=== PATIENT | female | born 1990 | race Caucasian/White ===

== ENCOUNTER 2025-03-22 20:40 | Emergency (ER) | payer SELFPAY ==
--- NOTE | ~2025-03-22 | CT_ITS ---
CLINICAL HISTORY: RLQ pain CT abdomen and pelvis with contrast Comparison: None available Findings: No consolidation of the imaged lung bases. No liver mass by CT. Gallbladder is unremarkable for CT. The adrenal glands are normal. The spleen is nonenlarged. Pancreas partly obscured with artifacts but otherwise unremarkable. No suspicious features of small cystic changes of the imaged kidneys. No hydronephrosis. Filtered contrast could obscure small stones including renal calices. Small mesenteric lymph nodes likely reactive. No small bowel obstruction. Severe stool burden in the cecum. The appendix is not definitively seen. Wall thickening of the large intestine is nonspecific and concerning for colitis, including mid and upper cecum, transverse colon, descending colon, and sigmoid colon. Mild free fluid in the abdomen pelvis nonspecific and may be reactive and/or secondary to colitis. Fluid in the pelvic inflammatory disease also considered. No free intraperitoneal air. No drainable abscess by CT at this time. Metal artifacts secondary to umbilicus piercing. Mild wall thickening of the urinary bladder is nonspecific and may reflect cystitis. Uterus is anteverted. No adnexal soft tissue mass by CT. Phleboliths are noted in the pelvis. IMPRESSION: 1. Wall thickening of the large intestine is nonspecific and concerning for colitis, including imaged cecum. 2. Free fluid in the pelvis is nonspecific and may be reactive and/or secondary to inflammation. 3. Wall thickening of the urinary bladder. 4. The appendix is not definitively seen. This document has been electronically signed by: Flavio Holder MD on 03/23/2025 02:06:53
[2025-03-22 20:44] VITALS: BP 126/84; PULSE 82; RESP 18; TEMP 36.2; O2SAT 97; BMI 23.5
--- NOTE | 2025-03-22 20:44 | ED.GENADULT ---
HPI - General Adult General Chief complaint: Nausea/Vomiting/Diarrhea Stated complaint: V/N/D light headed Time Seen by Provider: 03/22/25 22:48 Source: patient, RN notes reviewed and old records reviewed Mode of arrival: ambulatory Limitations: no limitations History of Present Illness ED Provider: Natalie WERNER narrative: 34 year old female presents for evaluation of nausea, vomiting, and abdominal pain. She reports intractable vomiting since last night with associated RLQ abdominal pain. She denies any history of abdominal surgeries. Her last menstrual cycle was a week ago. She denies using Marijuana Her pain is a 6/10. She had associated dizziness Denies any fevers, chills, or sick contacts She reports an episode of colitis several years ago that felt similar with mostly vomiting and some diarrhea Related Data Previous Rx's ?Medication ?Instructions ?Recorded amoxicillin 875 mg-potassium 1 tab PO Q12H #14 tabs 03/23/25 clavulanate 125 mg tablet potassium chloride 20 mEq oral 40 meq PO DAILY #10 ea 03/23/25 packet Allergies Allergy/AdvReac Type Severity Reaction Status Date / Time No Known Allergies Allergy Verified 03/22/25 20:46 seasonal Allergy Unknown Unknown Uncoded 03/22/25 20:46 Review of Systems Constitutional: Constitutional: Denies body ache(s), Denies chills, Denies fever(s) and Reports malaise Eyes: Eyes: Denies blurry vision ENT: Denies vertigo and Reports dizziness Cardiovascular: Cardiovascular: Denies chest pain and Denies dyspnea Respiratory: Respiratory: Denies cough and Denies dyspnea Gastrointestinal: Gastrointestinal: Reports abdominal pain, Reports nausea and Reports vomiting Musculoskeletal: Musculoskeletal: Denies back pain Integumentary/Breasts: Skin/Breast: Denies rash Neurologic: Denies vertigo and Reports dizziness Psychiatric: Psychiatric: Denies anxiety PMFSH Social History Social History Advance Directives: No Advance Directives Information Provided: No Physical Exam ED Vital Signs: Vital Signs - 24 hr 03/22/25 20:44 03/22/25 22:17 03/23/25 00:15 Temperature 97.2 F 98.1 F Pulse Rate 82 83 Respiratory Rate 18 Blood Pressure 126/84 122/79 Pulse Oximetry 97 99 87 L Oxygen Delivery Method Room Air Room Air Room Air Oxygen Flow Rate 03/23/25 00:24 Temperature Pulse Rate Respiratory Rate Blood Pressure Pulse Oximetry 99 Oxygen Delivery Method Nasal Cannula Oxygen Flow Rate 2 BMI result Body Mass Index 23.5 Const General: healthy appearing, comfortable, no acute distress, alert and awake Nutritional Appearance: well nourished Orientation/consciousness: patient oriented x3 HENMT Head: Yes normocephalic and Yes atraumatic Eyes Eyelids: Yes eyelids normal Conjunctivae: conjunctivae normal Sclerae: sclerae normal Corneas: corneas normal Pupils: Equal, round and reactive pupils present EOM: EOMs intact bilaterally Neck Neck: Yes full ROM Resp Effort & Inspection: normal respiratory effort, able to speak in complete sentences and not labored Cardio Rate: regular rate Rhythm: regular rhythm GI Inspection: No distended Palpation (GI): Soft to palpation, not firm, Tenderness to palpation present (GI) in the RLQ; not in the LLQ, not in the LUQ and not in the RUQ, no guarding and not rigid Skin General skin exam: elasticity normal Neuro General: patient oriented x3 Cranial nerves: Yes Equal, round and reactive pupils present and Yes Bilaterally intact EOM present Cognition (Neuro): normal cognition Extrem Other: Moving all extremities well without any obvious deformities Course Course Course Narrative: This is a rapid medical exam performed by All [facility] NP: Additional HPI, ROS, PE not included below will be deferred to primary provider. Patient is a 34-year-old female presenting with complaint of nausea, vomiting and diarrhea since yesterday am. RLQ cramping. Unable to tolerate PO fluids. Plan: labs, UA Reevaluation(s) Reevaluation #1: Patient's CT scan shows colitis, she is not septic, she reports not feeling significantly improved after IV fluids and antiemetics but would prefer not to be admitted because she has dogs take care of at home. She will be discharged with since supplementation, antiemetics and antibiotics for treatment of colitis. She was given return precaution Time: 02:48 Medications Administered Discontinued Medications Generic Name Dose Route Start Last Admin Trade Name Freq PRN Reason Stop Dose Admin Lactated Ringer's 1,000 mls @ 999 mls/hr 03/22/25 23:30 03/23/25 00:05 Lr IV 03/23/25 00:30 999 mls/hr .Q1H1M MARY Administration Lactated Ringer's 1,000 mls @ 999 mls/hr 03/23/25 00:26 03/23/25 02:05 Lr IV 03/23/25 01:26 999 mls/hr .Q1H1M STA Administration Iohexol 100 ml 03/22/25 23:43 03/22/25 23:44 Iohexol 350 Mg/Ml 100 Ml Infus..Btl IV 03/22/25 23:44 85 ml ONCE ONE Administration Ketorolac Tromethamine 30 mg 03/22/25 23:27 03/23/25 00:00 Ketorolac Tromethamine 30 Mg/Ml Vial IVPUSH 03/22/25 23:28 30 mg ONCE ONE Administration Metoclopramide HCl 10 mg 03/23/25 02:00 03/23/25 02:05 Metoclopramide Hcl 10 Mg/2 Ml Vial IVPUSH 03/23/25 02:01 10 mg ONCE ONE Administration Midazolam HCl 1 mg 03/22/25 23:27 03/23/25 00:01 Midazolam Hcl 2 Mg/2 Ml Vial IVPUSH 03/22/25 23:28 1 mg ONCE ONE Administration Ondansetron HCl 4 mg 03/22/25 22:38 03/22/25 23:19 Ondansetron Odt 4 Mg Tab.Rapdis TRANSLINGU 03/22/25 22:39 4 mg ONCE ONE Administration Ondansetron HCl 4 mg 03/22/25 23:27 03/23/25 00:02 Ondansetron Hcl 4 Mg/2 Ml Vial IVPUSH 03/22/25 23:28 4 mg ONCE ONE Administration Medical Decision Making Medical Decision Making [facility] Narrative: 34-year-old female presents for evaluation of Abdominal pain with persistent nausea and vomiting since last night. Her vital signs have remained stable throughout her stay, she is normotensive, she is not hypoxic, she is not tachycardic. Routine labs were significant for a leukocytosis to 13.9 which could be related to infection versus reactive to her vomiting. She has a left shift. Chemistries are significant for potassium of 2.8, chloride of 93 and a carbon dioxide of 31. 1.12. This is all likely explain due to JACK and electrolyte loss from vomiting. Her glucose is elevated to 184, she would not carry diagnosis of diabetes. Acute in the right lower quadrant tenderness a CT scan was ordered to evaluate for acute appendicitis. Also in differential includes enteritis, colitis, bowel obstruction is favored to be less likely. The patient is not . No urinary Complaints Differential Diagnosis Differential Diagnoses: The differential diagnosis associated with the presentation includes As above Admission/Observation Consideration of admission/observation: Escalation of care including admission/observation considered Patient was offered admission due to hypokalemia, dehydration and continued vomiting but she declined Lab Data MDM Lab Attestation statement: I reviewed the patient's lab results. As above 03/22/25 20:58 03/22/25 20:58 Labs: Lab Results 03/22/25 03/23/25 Range/Units 20:58 00:04 WBC 13.9 H (4.8-10.8) X10*3/uL RBC 4.97 (4.20-5.50) X10*6/uL Hgb 15.0 (12.0-16.0) g/dl Hct 41.8 (37.0-47.0) % MCV 84.1 (80.0-98.0) fL MCH 30.2 (27.0-33.0) pg MCHC 35.9 H (31.0-35.0) g/dl RDW 12.5 (11.0-16.0) % Plt Count 427 H (160-400) X10*3/uL MPV 9.7 (9.4-12.3) fL Immature Gran % (Auto) 0.4 (0.0-0.4) % Neut % (Auto) 85.1 H (45-73) % Lymph % (Auto) 8.3 L (20-40) % Stone % (Auto) 5.8 (2-11) % Eos % (Auto) 0.1 (0-4) % Baso % (Auto) 0.3 (0-2) % Lymph # (Auto) 1.2 (1.2-4.9) X10*3/uL Stone # (Auto) 0.8 (0.1-1.2) X10*3/uL Eos # (Auto) 0.0 (0.0-0.4) X10*3/uL Baso # (Auto) 0.0 (0.0-0.2) X10*3/uL Abs Immat Gran (auto) 0.06 H (0.00-0.03) X10*3/uL Absolute Neuts (auto) 11.8 H (2.0-8.3) x10*3/uL Absolute Nucleated RBC 0.000 (0.0-0.012) X10*3/uL Nucleated RBC % (auto) 0.0 (0.0-0.2) /100WBC VBG pH 7.55 H (7.32-7.43) VBG pCO2 38 mmHg VBG pO2 56 mmHg VBG HCO3 33 H (22-26) mmol/L VBG O2 Saturation 81.0 % VBG Base Excess 10.8 mmol/L Sodium 141 (135-145) mmol/L Potassium 2.8 L* (3.3-5.1) mmol/L Chloride 93 L (96-108) mmol/L Carbon Dioxide 31 H (22-29) mmol/L Anion Gap 20 (12-20) BUN 19 H (9-16) mg/dL Creatinine 1.12 (0.5-1.4) mg/dL Estim Creat Clear Calc 72.0 Estimated GFR 56 Random Glucose 184 H (60-115) mg/dL Calcium 10.3 H (8.4-10.2) mg/dL Magnesium 2.1 (1.6-2.6) mg/dL Total Bilirubin 0.4 (0.0-1.0) mg/dL AST 27 (5-31) U/L ALT 18 (0-31) U/L Alkaline Phosphatase 63 (39-117) U/L Total Protein 8.4 H (6.5-8.0) g/dL Albumin 5.4 H (3.5-5.0) g/dL Beta HCG, Quant < 2 mIU/mL Urine Color Dark Yellow Urine Appearance Cloudy Urine pH 5.5 (5.0-9.0) Ur Specific [place] >= 1.030 H (1.005-1.025) Urine Protein 100 (2+) H (Neg-Trace) mg/dL Urine Glucose (UA) Negative (Negative) mg/dL Urine Ketones 15 (Negative) mg/dL Urine Blood Negative (Negative) Urine Nitrite Negative (Negative) Ur Leukocyte Esterase Trace H (Negative) Urine RBC 3-5 H (0-2) /HPF Urine WBC 0-5 (0-5) /HPF Ur Squamous Epith Cells 11-20 (0-2) /HPF Urine Bacteria Trace (None Seen) Hyaline Casts 11-20 (0-2) /LPF Granular Casts Present Radiology Impression Discussion of test interpretation with radiology: I have reviewed the radiologist's reading. Radiologist Impression: IMPRESSION: 1. Wall thickening of the large intestine is nonspecific and concerning for colitis, including imaged cecum. 2. Free fluid in the pelvis is nonspecific and may be reactive and/or secondary to inflammation. 3. Wall thickening of the urinary bladder. 4. The appendix is not definitively seen. This document has been electronically signed by: Flavio Holder MD on 03/23/2025 02:06:53 Discharge Plan Discharge Clinical Impression: Colitis, Acute hypokalemia Patient Disposition: Home, Self-Care Instructions: Colitis (ED) Additional Instructions: Your workup in the ER today showed colitis. This is inflammation of your large intestine Hydrate well, small sips at a time to prevent nausea Your potassium was low today in you were given potassium supplementation. Use Zofran as needed for nausea and vomiting Take Augmentin twice daily for 1 week to treat colitis This may worsen nausea and cause GI upset Return to the ER if your symptoms are worsening or not improving Prescriptions: New amoxicillin-pot clavulanate 875-125 mg tablet 1 tab PO Q12H Qty: 14 0RF potassium chloride 20 mEq packet 40 meq PO DAILY Qty: 10 0RF Print Language: [place] Islander
--- OUTSIDE RECORDS SUMMARY | 2025-03-22 21:02 | XMS_ITS | Clinical Summary ---
Author Organization [facility] Address [address] [place] [address] Phone Care Team Providers Care Epic Willow Analyst Name Role Phone Unavailable Primary Care Provider Unavailabl e Social History Tobacco Use Types Packs/Day Years Used Date Smoking Tobacco: Never Assessed Comments Unknown Sex and Gender Information Value Date Recorded Sex Assigned at Not on file Legal Sex Female 9:07 PM EST Gender Identity Not on file Sexual Orientation Not on file Plan of Treatment Health Maintenance Due Date Last Done Comments DTaP,Tdap,and Td Vaccines (1 - Tdap) 12/19/2010 Hepatitis B Vaccines (1 of 3 - 19+ 3-dose series) 12/19/2010 Cervical Cancer Screening: P ap Smear 12/19/2012 Depression Screening 11/03/2023 HIV Screening 11/03/2023 Hepatitis C Screening 11/03/2023 Social Influencers of Health Screening 11/03/2023 COVID-19 Vaccine (2023-2 5 season) 2024 Influenza Vaccine (Season Ended) 2025 HIB Vaccines Aged Out No longer eligi ble based on patient's age to complete this topic HPV Vaccines Aged Out No longer eligi ble based on patient's age to complete this topic Hepatitis A Vaccines Aged Out No long er eligible based on patient's age to complete this topic IPV Vaccines Aged Out No longer eligi ble based on patient's age to complete this topic MMR Vaccines Aged Out No longer eligi ble based on patient's age to complete this topic Meningococcal ACWY Vaccine Aged Out N o longer eligible based on patient's age to complete this topic Meningococcal B Vaccine Aged Out No l onger eligible based on patient's age to complete this topic Pneumococcal Vaccine: Pediat rics (0 to 5 Years) and At-Risk Patients (6 to 64 Years) Aged Out No longer eligible b ased on patient's age to complete this topic RSV Immunization Patients Un edward 20 months Aged Out No longer eligible b ased on patient's age to complete this topic Varicella Vaccines Aged Out No longer eligible based on patient's age to complete this topic
[2025-03-22 21:08] LABS: MANUAL DIFF FLAG NO
[2025-03-22 21:09] LABS: Basophils Percent Auto 0.3 % (0-2); Eosinophils Percent Auto 0.1 % (0-4); Hematocrit 41.8 % (37.0-47.0); Imm Gran Abs Auto 0.06 X10*3/uL (0.00-0.03); Imm Gran Pct Auto 0.4 % (0.0-0.4); Lymphocytes Absolute Auto 1.2 X10*3/uL (1.2-4.9); Lymphocytes Percent Auto 8.3 % (20-40); Mean Corpuscular HGB Conc 35.9 g/dl (31.0-35.0); Mean Corpuscular Hemoglobin 30.2 pg (27.0-33.0); Mean Corpuscular Volume 84.1 fL (80.0-98.0); Mean Platelet Volume 9.7 fL (9.4-12.3); Monocytes Absolute Auto 0.8 X10*3/uL (0.1-1.2); Monocytes Percent Auto 5.8 % (2-11); Neutrophils Absolute Auto 11.8 x10*3/uL (2.0-8.3); Neutrophils Percent Auto 85.1 % (45-73); Platelet Count 427 X10*3/uL (160-400); Red Blood Count 4.97 X10*6/uL (4.20-5.50); Red Cell Distribution Width 12.5 % (11.0-16.0); White Blood Count 13.9 X10*3/uL (4.8-10.8)
[2025-03-22 21:11] LABS: Appearance Urine Cloudy; Color Urine Dark Yellow; Glucose Urine UA Negative (Negative); Leukocyte Esterase Urine Trace (Negative); Nitrite Urine Negative (Negative); PH 5.5 (5.0-9.0); Specific Gravity - Urine >= 1.030 (1.005-1.025); UMIC TRIGGER UACC YES; Urine Blood Negative (Negative); Urine Ketones 15 mg/dL (Negative); Urine Protein 100 (2+) mg/dL (Neg-Trace)
[2025-03-22 21:35] LABS: Bacteria Urine Trace (None Seen); Granular Casts Urine Present; WBC Urine 0-5 /HPF (0-5)
[2025-03-22 21:50] LABS: Alanine Aminotransferase 18 U/L (0-31); Albumin Level 5.4 g/dL (3.5-5.0); Alkaline Phosphatase 63 U/L (39-117); Anion Gap 20 (12-20); Aspartate Amino Transferase 27 U/L (5-31); Bilirubin Total 0.4 mg/dL (0.0-1.0); Blood Urea Nitrogen 19 mg/dL (9-16); Calcium 10.3 mg/dL (8.4-10.2); Carbon Dioxide 31 mmol/L (22-29); Chloride 93 mmol/L (96-108); Estimated Glomerular Filt Rate 56; Glucose Random 184 mg/dL (60-115); Magnesium 2.1 mg/dL (1.6-2.6); Potassium 2.8 mmol/L (3.3-5.1); Sodium 141 mmol/L (135-145); Total Protein 8.4 g/dL (6.5-8.0)
[2025-03-22 22:07] LABS: HCG Quantitative < 2 mIU/mL
[2025-03-22 22:17] VITALS: BP 122/79; PULSE 83; TEMP 36.7; O2SAT 99
[2025-03-22] MEDS: Ondansetron ODT 4 MG TAB.RAPDIS TRANSLINGU (23:19)
[2025-03-22] MEDS: iohexoL 350 MG/ML 100 ML INFUS..BTL IV (23:44)
[2025-03-23] MEDS: Ketorolac Tromethamine 30 MG/ML VIAL IVPUSH
[2025-03-23] MEDS: Midazolam HCl 2 MG/2 ML VIAL 1 MG IVPUSH (00:01)
[2025-03-23] MEDS: ondansetron HCL 4 MG/2 ML VIAL IVPUSH (00:02)
[2025-03-23] MEDS: Lactated Ringers 1,000 ML 999 ML IV ×2 (00:05→02:05)
[2025-03-23 00:06] LABS: Venous Blood Gas Refer to POC result
[2025-03-23 00:09] LABS: VBG Base Excess 10.8 mmol/L; VBG HCO3 33 mmol/L (22-26); VBG pCO2 38 mmHg; VBG pH 7.55 (7.32-7.43); VBG pO2 56 mmHg
[2025-03-23 00:15] VITALS: O2SAT 87
[2025-03-23 00:24] VITALS: O2SAT 99
[2025-03-23] MEDS: Metoclopramide HCl 10 MG/2 ML VIAL IVPUSH (02:05)
[2025-03-23] MEDS: Potassium Chloride ER 20 MEQ TAB.ER.PRT 60 MEQ PO (02:50)
[2025-03-23 02:51] VITALS: BP 138/76; PULSE 91; RESP 20; TEMP 36.8; O2SAT 96
[2025-03-23 03:14] VITALS: BP 138/76; PULSE 91; RESP 20; TEMP 36.8; O2SAT 96
== END 2025-03-23 03:24 | disposition home or self-care (01) ==
PROVIDERS: Physician Assistant; Registered Nurse Emergency; Emergency Provider Internal Medicine
DX: K52.9 Noninfective gastroenteritis and colitis, unspecified (principal); E87.6 Hypokalemia; R11.2 Nausea with vomiting, unspecified; R10.31 Right lower quadrant pain
CPT/HCPCS: 36415; 74177; 80053; 81001; 82803; 83735; 84702; 85025; 96361; 96374; 96375; 99285; J1885; J2250; J2405; J2765; J7120; Q9967

== ENCOUNTER → 2025-03-22 23:28 | Outpatient (BNV) | payer SELFPAY | PROVIDERS: Emergency Provider Internal Medicine; Visit Provider Radiology Neuroradiology | DX: K63.89 Other specified diseases of intestine (principal); R18.8 Other ascites; N32.89 Other specified disorders of bladder | CPT/HCPCS: 74177 ==

== ENCOUNTER 2025-03-24 09:03 | Inpatient (IN) | payer SELFPAY ==
[2025-03-24 09:14] VITALS: BP 128/88; PULSE 86; RESP 18; TEMP 36.8; O2SAT 97; BMI 23.8
[2025-03-24 09:29] LABS: MANUAL DIFF FLAG NO
[2025-03-24 09:32] LABS: Basophils Percent Auto 0.2 % (0-2); Eosinophils Percent Auto 0.1 % (0-4); Hematocrit 39.9 % (37.0-47.0); Imm Gran Abs Auto 0.06 X10*3/uL (0.00-0.03); Imm Gran Pct Auto 0.4 % (0.0-0.4); Lymphocytes Percent Auto 7.2 % (20-40); Mean Corpuscular HGB Conc 35.1 g/dl (31.0-35.0); Mean Corpuscular Hemoglobin 29.9 pg (27.0-33.0); Mean Corpuscular Volume 85.3 fL (80.0-98.0); Mean Platelet Volume 9.5 fL (9.4-12.3); Monocytes Absolute Auto 0.7 X10*3/uL (0.1-1.2); Monocytes Percent Auto 4.9 % (2-11); Neutrophils Absolute Auto 11.7 x10*3/uL (2.0-8.3); Neutrophils Percent Auto 87.2 % (45-73); Platelet Count 405 X10*3/uL (160-400); Red Blood Count 4.68 X10*6/uL (4.20-5.50); Red Cell Distribution Width 12.3 % (11.0-16.0); White Blood Count 13.4 X10*3/uL (4.8-10.8)
[2025-03-24 09:49] LABS: Alanine Aminotransferase 60 U/L (0-31); Albumin Level 4.9 g/dL (3.5-5.0); Alkaline Phosphatase 54 U/L (39-117); Anion Gap 14 (12-20); Aspartate Amino Transferase 45 U/L (5-31); Bilirubin Total 0.4 mg/dL (0.0-1.0); Blood Urea Nitrogen 15 mg/dL (9-16); Calcium 9.7 mg/dL (8.4-10.2); Carbon Dioxide 28 mmol/L (22-29); Chloride 100 mmol/L (96-108); Creatinine Clr Calc Pharmacy 98.4; Estimated Glomerular Filt Rate > 60; Glucose Random 117 mg/dL (60-115); Potassium 2.9 mmol/L (3.3-5.1); Sodium 139 mmol/L (135-145); Total Protein 7.7 g/dL (6.5-8.0)
--- NOTE | 2025-03-24 11:13 | ED_ITS ---
HPI - Abdominal Pain General Chief Complaint: Abdominal Pain Stated Complaint: nausea vomiting racing heart Time Seen by Provider: 03/24/25 11:09 Source: patient Mode of arrival: ambulatory Limitations: no limitations History of Present Illness ED Provider: DR. Morales HPI narrative: 34-year-old female return to the emergency department today for persistent of nausea, vomiting, nonbloody watery diarrhea, and diffuse abdominal cramps, patient was seen on 03/22 for similar symptoms had CT abdomen pelvis which reveals nonspecific colitis. Patient reports persistent vomiting and unable to keep any medicine down patient was discharged on Augmentin and supplemental potassium. No history of intra-abdominal surgery, last bowel movement was this morning and was nonbloody watery brown stool diarrhea, able to pass flatus, no dysuria, no frequency urination but patient notice a dark color urine. No vaginal discharge or bleed, no chance of being . Patient reports no history of marijuana use, patient admit to drinking alcohol occasionally. Related Data Previous Rx's ?Medication ?Instructions ?Recorded amoxicillin 875 mg-potassium 1 tab PO Q12H #14 tabs 03/23/25 clavulanate 125 mg tablet potassium chloride 20 mEq oral 40 meq PO DAILY #10 ea 03/23/25 packet Allergies Allergy/AdvReac Type Severity Reaction Status Date / Time No Known Allergies Allergy Verified 03/24/25 09:16 seasonal Allergy Unknown Unknown Uncoded 03/22/25 20:46 Review of Systems Review of Systems All other systems are reviewed and are negative Constitutional: Reports as per HPI and Reports no additional constitutional complaints Eyes: Reports as per HPI and Reports no additional eye complaints Reports system reviewed and no additional complaints, except as documented Cardiovascular: Reports as per HPI and Reports no additional cardiovascular complaints Respiratory: Reports as per HPI and Reports no additional respiratory complaints Gastrointestinal: Reports as per HPI and Reports no additional gastrointestinal complaints Genitourinary: Reports no additional female genitourinary complaints Musculoskeletal: Reports no additional musculoskeletal complaints Skin/Breast: Reports system reviewed and no additional complaints, except as docu Psychiatric: Reports no additional psychiatric complaints Endocrine: Reports no additional endocrine complaints Hematologic/Lymphatic: Reports no additional hematologic/lymphatic complaints Allergic/Immunologic: Reports no additional allergic/immunologic complaints Reports system reviewed and no additional complaints, except as documented and Reports Abnormal speech present Physical Exam ED Vital Signs: Vital Signs - 24 hr 03/24/25 09:14 Temperature 98.2 F Pulse Rate 86 Respiratory Rate 18 Blood Pressure 128/88 Pulse Oximetry 97 Oxygen Delivery Method Room Air BMI result Body Mass Index 23.8 Vital signs have been reviewed and appear to be correct. Blood pressure elevated. Heart rate normal. Respiratory rate normal. Temperature normal. Oxygen saturation normal. Appearance: Alert. Oriented X3. No acute distress. Head: Normal external exam. Normocephalic. Atraumatic. No Cook signs noted. No raccoon eyes noted Eyes: PERRLA. EOMI. Conjunctiva and sclera normal. Eyelids normal. ENT: TM's Normal. Pharynx normal. Uvula midline. Dry mucous membranes. No trismus noted. No drooling noted. No muffled voice noted. Neck: Normal inspection. Neck supple. FROM. No adenopathy. Thyroid Normal. No meningeal signs. No neck mass noted. CVS: Normal heart rate and rhythm. Heart sound normal. No murmurs noted. Pulses normal throughout. Respiratory: No respiratory distress. Painless inspiration. Breath sounds normal. No wheezes/rales/rhonchi noted. Chest nontender. No accessory muscle usage noted or decreased air movement noted. Abdomen: Soft and nontender. Bowel sounds normal in all 4 quadrants. No distention noted. No organomegaly noted. No visible injury noted. Back: No CVA tenderness. Full range of motion noted. Skin: Skin warm and dry. Normal skin color. Normal skin turgor. No rashes/lesions/lacerations noted. Extremities: No lower extremity edema. Extremities exhibit normal range of motion. Extremities nontender. Neuro: Oriented X 3. Cranial nerve exam: II-XII are grossly intact No motor deficit. No sensory deficit. Reflexes normal. Course Reevaluation(s) Reevaluation #1: Persistent colitis with persistent nausea and vomiting with dehydration and hypokalemia. Unable to tolerate p.o. intake at home will consider IV hydration, antibiotic, and antiemetic medication. Replete potassium. Time: 11:20 Medical Decision Making Differential Diagnosis Differential Diagnoses: The differential diagnosis associated with the presentation includes ( Dehydration, colitis, diverticulitis, electrolyte derangement, severe anemia.) Admission/Observation Consideration of admission/observation: Escalation of care including admission/observation considered Consult Healthcare Provider Management of the patient was discussed with: Hospitalist ( Dr. Medina) Lab Data MDM Lab Attestation statement: I reviewed the patient's lab results. 03/24/25 09:25 03/24/25 09:25 Labs: Lab Results 03/24/25 Range/Units 09:25 WBC 13.4 H (4.8-10.8) X10*3/uL RBC 4.68 (4.20-5.50) X10*6/uL Hgb 14.0 (12.0-16.0) g/dl Hct 39.9 (37.0-47.0) % MCV 85.3 (80.0-98.0) fL MCH 29.9 (27.0-33.0) pg MCHC 35.1 H (31.0-35.0) g/dl RDW 12.3 (11.0-16.0) % Plt Count 405 H (160-400) X10*3/uL MPV 9.5 (9.4-12.3) fL Immature Gran % (Auto) 0.4 (0.0-0.4) % Neut % (Auto) 87.2 H (45-73) % Lymph % (Auto) 7.2 L (20-40) % Mitchell % (Auto) 4.9 (2-11) % Eos % (Auto) 0.1 (0-4) % Baso % (Auto) 0.2 (0-2) % Lymph # (Auto) 1.0 L (1.2-4.9) X10*3/uL Mitchell # (Auto) 0.7 (0.1-1.2) X10*3/uL Eos # (Auto) 0.0 (0.0-0.4) X10*3/uL Baso # (Auto) 0.0 (0.0-0.2) X10*3/uL Abs Immat Gran (auto) 0.06 H (0.00-0.03) X10*3/uL Absolute Neuts (auto) 11.7 H (2.0-8.3) x10*3/uL Absolute Nucleated RBC 0.000 (0.0-0.012) X10*3/uL Nucleated RBC % (auto) 0.0 (0.0-0.2) /100WBC Sodium 139 (135-145) mmol/L Potassium 2.9 L* (3.3-5.1) mmol/L Chloride 100 (96-108) mmol/L Carbon Dioxide 28 (22-29) mmol/L Anion Gap 14 (12-20) BUN 15 (9-16) mg/dL Creatinine 0.82 (0.5-1.4) mg/dL Estim Creat Clear Calc 98.4 Estimated GFR > 60 Random Glucose 117 H (60-115) mg/dL Calcium 9.7 (8.4-10.2) mg/dL Total Bilirubin 0.4 (0.0-1.0) mg/dL AST 45 H (5-31) U/L ALT 60 H (0-31) U/L Alkaline Phosphatase 54 (39-117) U/L Total Protein 7.7 (6.5-8.0) g/dL Albumin 4.9 (3.5-5.0) g/dL Independent Interpretation I performed an independent interpretation of an: CT Scan ( abdomen pelvis:. Wall thickening of the large intestine is nonspecific and concerning for colitis, including imaged cecum. 2. Free fluid in the pelvis is nonspecific and may be reactive and/or secondary to inflammation. 3. Wall thickening of the urinary bladder. 4. The appendix is not definitivel) Radiology Impression Discussion of test interpretation with radiology: I have reviewed the radiologist's reading. Discharge Plan Discharge Clinical Impression: Intractable nausea and vomiting, Gastroenteritis, Colitis, Acute hypokalemia Patient Disposition: Admitted As Inpatient Prescriptions: No Action amoxicillin-pot clavulanate 875-125 mg tablet 1 tab PO Q12H Qty: 14 0RF potassium chloride 20 mEq packet 40 meq PO DAILY Qty: 10 0RF Print Language: Faroese
[2025-03-24 11:58] VITALS: BP 130/86; PULSE 91; RESP 18; TEMP 37.3; O2SAT 96
[2025-03-24] MEDS: ondansetron HCL 4 MG/2 ML VIAL IVPUSH ×2 (12:12→18:02)
[2025-03-24] MEDS: Ketorolac Tromethamine 30 MG/ML VIAL 15 MG IVPUSH (12:12)
[2025-03-24] MEDS: Piperacillin Sodium/Tazobactam 3.375 GM in 0.9 % Sodium Chloride 50 ML IV ×3 (12:13→23:11)
[2025-03-24 12:23] LABS: Lactic Acid 0.8 mmol/L (0.5-2.0)
[2025-03-24 12:23] LABS: Appearance Urine Clear; Color Urine Yellow; Glucose Urine UA Negative (Negative); Leukocyte Esterase Urine Trace (Negative); Nitrite Urine Negative (Negative); Specific Gravity - Urine 1.015 (1.005-1.025); UMIC TRIGGER UACC YES; Urine Blood Negative (Negative); Urine Ketones 15 mg/dL (Negative); Urine Protein Trace mg/dL (Neg-Trace)
[2025-03-24 12:24] LABS: UPreg QC Valid YES; Urine Pregnancy NEGATIVE (NEGATIVE)
[2025-03-24 12:25] LABS: Bacteria Urine None Seen (None Seen); Hyaline Casts Urine 0-2 /LPF (0-2); RBC Urine 0-2 /HPF (0-2); WBC Urine 0-5 /HPF (0-5)
[2025-03-24] MEDS: Potassium Chloride/H20 10 MEQ/100 ML PIGGYBACK 100 MEQ IV ×3 (12:51→19:43)
[2025-03-24] MEDS: 0.9 % Sodium Chloride 1,000 ML 999 ML IV (12:54)
--- OUTSIDE RECORDS SUMMARY | 2025-03-24 12:59 | XMS_ITS | Clinical Summary ---
Author Organization [facility] Address [address] [place] [address] Phone Care Team Providers Care Microwave Oven Assembler Name Role Phone Unavailable Primary Care Provider [...]
--- NOTE | 2025-03-24 14:03 | PHA.MEDREC ---
Addendum entered by Edith Marr RPh 03/24/25 14:44: MED REC REVIEWED BY [facility] Original Note: Pharmacy Consult ? Medication Reconciliation Pharmacy has completed the medication reconciliation. Spoke with pt and she was able to confirm she had just started on an Amoxicillin-Pot and Potassium Chloride 20meq regimen yesterday but doesn't think she was able to keep them down and threw them up. She also has on hand a packet of Nauzene for upset stomach and nausea and states she takes 3 tabs as needed when she feels like she is going to be sick.
[2025-03-24 15:06] VITALS: BP 122/68; PULSE 80; RESP 16; TEMP 37.5; O2SAT 96
[2025-03-24] MEDS: Lactated Ringers 1,000 ML 100 ML IVCONT (16:41)
--- NOTE | 2025-03-24 17:50 | P.HPHOSP_ITS ---
History of Present Illness Date of Service: 03/24/25 Attending physician on admission: Byron Williamson Chief Complaint: abd pain 34y/o F who was in the ED yesterday with similar symptoms-came today for persistent of nausea, vomiting, nonbloody watery diarrhea, and diffuse abdominal cramps, patient was seen on 03/22 for similar symptoms had CT abdomen pelvis which reveals nonspecific colitis. She was sent home yesterday with p.o. Augmentin but she could not tolerate it due to persistent nausea vomiting and also has significant abdominal pain so came to the hospital for further management. Last BM was this morning mostly watery Denies any new complaint of chest pain or shortness of breath or fever or chills Denies any cough or any weakness or numbness. Lab imaging reviewed: WBC count is 13.4 Potassium 2.9 Mild elevated AST and ALT. CT abdomen as above. Patient received IV Zosyn, Zofran pain medication and potassium in ED and requested admission for colitis and unable to take p.o. Review of Systems 2 Review of Systems: As above. Yes all other systems are reviewed and are negative PMFSH Social History Advance Directives: No Advance Directives Information Provided: Yes Patient : No Meds Allergies Allergy/AdvReac Type Severity Reaction Status Date / Time No Known Allergies Allergy Verified 03/24/25 09:16 seasonal Allergy Unknown Unknown Uncoded 03/22/25 20:46 Active Medications: Current Medications Acetaminophen (Acetaminophen 325 Mg Tablet) 650 mg PO Q6H PRN PRN Reason: Pain, Mild 1-3,fever,headache Calcium Carbonate (Calcium Carbonate 750 Mg Tab.Chew) 750 mg PO Q4H PRN PRN Reason: Heartburn Piperacillin Sod/Tazobactam (Sod 3.375 gm/ Sodium Chloride) 50 mls @ 100 mls/hr IV Q6H [facility] Last Admin: 03/24/25 17:03 Dose: 100 mls/hr Lactated Ringer's (Lr) 1,000 mls @ 100 mls/hr IVCONT .Q10H [facility] Last Admin: 03/24/25 16:41 Dose: 100 mls/hr Potassium Chloride (Potassium Chloride/H20) 10 meq in 100 mls @ 100 mls/hr IV Q1H MARY Stop: 03/24/25 18:14 Magnesium Hydroxide (Milk Of Magnesia 30 Ml Oral.Susp) 30 ml PO DAILY PRN PRN Reason: Constipation Melatonin (Melatonin 3 Mg Tablet) 6 mg PO BEDTIME PRN PRN Reason: Insomnia Morphine Sulfate (Morphine Sulfate 2 Mg/Ml Cartridge) 2 mg IVPUSH Q4H PRN; Protocol PRN Reason: Pain, Severe (Pain Scale 7-10) Ondansetron HCl (Ondansetron Hcl 4 Mg/2 Ml Vial) 4 mg IVPUSH Q6H PRN PRN Reason: Nausea and Vomiting Sodium Chloride (0.9 % Sodium Chloride Flush 3 Ml Syringe) 3 ml IVFLUSH QSHIFT COUNTS INCLUDE 234 BEDS AT THE [facility] Last Admin: 03/24/25 16:44 Dose: Not Given Home Medications ?Medication ?Instructions ?Recorded ?Confirmed ?Last Taken ?Type sodium citrate 230 mg chewable 690 mg PO Q15M PRN Nausea And 03/24/25 03/24/25 03/23/25 History tablet (Nauzene Upset Vomiting Stomach-Nausea) Physical Exam 2 Vital Signs and Narrative: Vital Signs: Last Vital Signs Temp 99.5 F 03/24/25 15:06 Pulse 80 03/24/25 15:06 Resp 16 03/24/25 15:06 BP 122/68 03/24/25 15:06 Pulse Ox 96 03/24/25 15:06 O2 Del Method Room Air 03/24/25 15:06 BMI result Body Mass Index 23.8 Appearance: Alert.? Oriented X3.? cvs: rrr, [id number] . res: clear to auscultation ,no rhonchii or wheezing abd: no rebound or guarding ,right sided abd pain, bs present. ext pulses present , no cyanosis . neuro: axo3 , nonfocal. Results Labs 03/24/25 09:25 03/24/25 09:25 Labs: Laboratory Results - last 24 hr 03/24/25 03/24/25 03/24/25 09: 12:00 12:11 MCV 85.3 MCH 29.9 MCHC 35.1 H RDW 12.3 Plt Count 405 H MPV 9.5 Immature Gran % (Auto) 0.4 Neut % (Auto) 87.2 H Lymph % (Auto) 7.2 L [place] % (Auto) 4.9 Eos % (Auto) 0.1 Baso % (Auto) 0.2 Lymph # (Auto) 1.0 L [place] # (Auto) 0.7 Eos # (Auto) 0.0 Baso # (Auto) 0.0 Abs Immat Gran (auto) 0.06 H Absolute Neuts (auto) 11.7 H Absolute Nucleated RBC 0.000 Nucleated RBC % (auto) 0.0 Anion Gap 14 Estim Creat Clear Calc 98.4 Estimated GFR > 60 Random Glucose 117 H Lactic Acid 0.8 Calcium 9.7 Total Bilirubin 0.4 AST 45 H ALT 60 H Alkaline Phosphatase 54 Total Protein 7.7 Albumin 4.9 Urine Color Yellow Urine Appearance Clear Urine pH 8.0 Ur Specific [place] 1.015 Urine Protein Trace Urine Glucose (UA) Negative Urine Ketones 15 Urine Blood Negative Urine Nitrite Negative Ur Leukocyte Esterase Trace H Urine RBC 0-2 Urine WBC 0-5 Ur Squamous Epith Cells 3-5 Urine Bacteria None Seen Hyaline Casts 0-2 Urine Test NEGATIVE Assessment and Plan (1) Acute hypokalemia: Status: Acute (2) Colitis: Status: Acute (3) Intractable nausea and vomiting: Status: Acute Plan 34y/o F who was in the ED yesterday with similar symptoms-came today for persistent of nausea, vomiting, nonbloody watery diarrhea, and diffuse abdominal cramps, patient was seen on 03/22 for similar symptoms had CT abdomen pelvis which reveals nonspecific colitis. Colitis with intractable nausea vomiting and diarrhea: Lactic acid normal, blood cultures sent Not septic at present Plan: Stool studies, IV fluid, antiemetics IV, IV antibiotics, IV pain medication. Acute hypokalemia: IV potassium added Monitor BMP closely DVT : SubQ Lovenox Ongoing need for hospitalization: Colitis with intractable nausea vomiting diarrhea-unable to take p.o. food or antibiotics, also has electrolytic abnormalities-patient will benefit from 2 midnight stay. For further monitoring for colitis and electrolyte monitoring. Above management discussed with the patient in detail length she understand and in agreement with the above plan, time spent 70 minute, all question answered. Quality Stroke Does the patient have a stroke diagnosis?: No VTE Prior VTE?: No VTE Risk Level:: Medical - moderate - high VTE Device Contraindication: N/A - Device Ordered VTE Drug Contraindication: N/A - Med Ordered
[2025-03-24 17:52] VITALS: BP 123/69; PULSE 76; RESP 16; TEMP 36.8; O2SAT 96
--- NOTE | 2025-03-24 17:53 | PC.NURSE ---
Patient is a 34 yo female with no significant pmh presents with Persistent colitis with persistent nausea and vomiting with dehydration and hypokalemia. Unable to tolerate p.o. intake at home will consider IV hydration, antibiotic, and antiemetic medication. Alert and oriented. Lungs clear bilat. Respirations even and non-labored. Abdomen soft, with generalized abdominal pain. Positive pedal pulses with no edema. Family at the bedside. Pending a bed assignment.
[2025-03-24] MEDS: Morphine Sulfate 2 MG/ML CARTRIDGE IVPUSH (18:02)
[2025-03-24 18:42] VITALS: BP 123/68; PULSE 82; RESP 18
--- NOTE | 2025-03-24 18:45 | PC.NURSE ---
pt to rm 22 from [facility] d/t con't tele orders. medicated per DEC w 1st bag of KCl, LR running at 100ml/hr. Medication compatibility confirmed w pharm. pt a&ox4, reporting cont'd lower abd pain, given hot pack, vss.
[2025-03-24] MEDS: Enoxaparin Sodium 40 MG/0.4 ML SYRINGE SUBCUT (19:43)
--- NOTE | 2025-03-24 19:55 | PC.NURSE ---
RN dipak texted hospitalist regarding pts nausea being unrelieved with zofran. pending new orders. Hot packs provided for pt as comfort measures.
[2025-03-24] MEDS: Metoclopramide HCl 10 MG/2 ML VIAL 5 MG IVPUSH (20:49)
[2025-03-24 21:57] VITALS: BP 116/59; PULSE 82; RESP 16; TEMP 36.1; O2SAT 96
[2025-03-25] MEDS: Lactated Ringers 1,000 ML 100 ML IVCONT ×2 (02:00→12:15)
[2025-03-25 03:50] VITALS: BP 108/65; PULSE 82; RESP 18; TEMP 36.9; O2SAT 98
[2025-03-25] MEDS: ondansetron HCL 4 MG/2 ML VIAL IVPUSH ×3 (04:32→17:50)
[2025-03-25] MEDS: Morphine Sulfate 2 MG/ML CARTRIDGE IVPUSH ×3 (04:38→17:57)
[2025-03-25] MEDS: Metoclopramide HCl 10 MG/2 ML VIAL 5 MG IVPUSH ×2 (05:38→14:23)
[2025-03-25] MEDS: Piperacillin Sodium/Tazobactam 3.375 GM in 0.9 % Sodium Chloride 50 ML IV ×4 (05:39→22:46)
--- NOTE | 2025-03-25 05:47 | PC.NURSE ---
Pt with nausea and vomiting medicated with zofran 4mg IV at 0430 with no effect still has N/V. notified ordered reglan 5mg IV x 1 dose given at 0540.
[2025-03-25 06:46] LABS: Hematocrit 36.2 % (37.0-47.0); Hemoglobin 12.3 g/dl (12.0-16.0); Mean Corpuscular Hemoglobin 29.9 pg (27.0-33.0); Mean Corpuscular Volume 88.1 fL (80.0-98.0); Mean Platelet Volume 9.9 fL (9.4-12.3); Platelet Count 332 X10*3/uL (160-400); Red Blood Count 4.11 X10*6/uL (4.20-5.50); White Blood Count 7.4 X10*3/uL (4.8-10.8)
--- NOTE | 2025-03-25 07:29 | P.PNIM_ITS ---
Subjective Subjective Date of Service: 03/26/25 Interval History: f/u on abd pain d/t colitis She's still reporting n/v diarrha and pain Review of Systems As above. Physical Exam 2 Vital Signs: Vital Signs: Last Vital Signs Temp 98.4 F 03/25/25 03:50 Pulse 82 03/25/25 03:50 Resp 18 03/25/25 03:50 BP 108/65 03/25/25 03:50 Pulse Ox 98 03/25/25 03:50 O2 Del Method Room Air 03/25/25 03:50 BMI result Body Mass Index 23.8 General: AO X 3, no acute distress Objective Data Active Medications Acetaminophen (Acetaminophen 325 Mg Tablet) 650 mg PO Q6H PRN PRN Reason: Pain, Mild 1-3,fever,headache Calcium Carbonate (Calcium Carbonate 750 Mg Tab.Chew) 750 mg PO Q4H PRN PRN Reason: Heartburn Enoxaparin Sodium (Enoxaparin Sodium 40 Mg/0.4 Ml Syringe) 40 mg SUBCUT Q24H [facility] Last Admin: 03/24/25 19:43 Dose: 40 mg Documented By: CELY Piperacillin Sod/Tazobactam (Sod 3.375 gm/ Sodium Chloride) 50 mls @ 100 mls/hr IV Q6H [facility] Last Infusion: 03/25/25 06:10 Dose: Infused Documented By: NIYAH Lactated Ringer's (Lr) 1,000 mls @ 100 mls/hr IVCONT .Q10H [facility] Last Admin: 03/25/25 02:00 Dose: 100 mls/hr Documented By: NIYAH Magnesium Hydroxide (Milk Of Magnesia 30 Ml Oral.Susp) 30 ml PO DAILY PRN PRN Reason: Constipation Melatonin (Melatonin 3 Mg Tablet) 6 mg PO BEDTIME PRN PRN Reason: Insomnia Morphine Sulfate (Morphine Sulfate 2 Mg/Ml Cartridge) 2 mg IVPUSH Q4H PRN; Protocol PRN Reason: Pain, Severe (Pain Scale 7-10) Last Admin: 03/25/25 04:38 Dose: 2 mg Documented By: NIYAH Ondansetron HCl (Ondansetron Hcl 4 Mg/2 Ml Vial) 4 mg IVPUSH Q6H PRN PRN Reason: Nausea and Vomiting Last Admin: 03/25/25 04:32 Dose: 4 mg Documented By: NIYAH Sodium Chloride (0.9 % Sodium Chloride Flush 3 Ml Syringe) 3 ml IVFLUSH QSHIFT [facility] Last Admin: 03/25/25 06:36 Dose: Not Given Documented By: MARCELINA Non-Admin Reason: IV Running Labs 03/25/25 06:12 03/25/25 19:03 Labs: Laboratory Results - last 24 hr 03/24/25 03/24/25 03/24/25 09:25 12:00 12:11 MCV 85.3 MCH 29.9 MCHC 35.1 H RDW 12.3 Plt Count 405 H MPV 9.5 Immature Gran % (Auto) 0.4 Neut % (Auto) 87.2 H Lymph % (Auto) 7.2 L [place] % (Auto) 4.9 Eos % (Auto) 0.1 Baso % (Auto) 0.2 Lymph # (Auto) 1.0 L [place] # (Auto) 0.7 Eos # (Auto) 0.0 Baso # (Auto) 0.0 Abs Immat Gran (auto) 0.06 H Absolute Neuts (auto) 11.7 H Absolute Nucleated RBC 0.000 Nucleated RBC % (auto) 0.0 Anion Gap 14 Estim Creat Clear Calc 98.4 Estimated GFR > 60 Random Glucose 117 H Lactic Acid 0.8 Calcium 9.7 Total Bilirubin 0.4 AST 45 H ALT 60 H Alkaline Phosphatase 54 Total Protein 7.7 Albumin 4.9 Urine Color Yellow Urine Appearance Clear Urine pH 8.0 Ur Specific [employer] 1.015 Urine Protein Trace Urine Glucose (UA) Negative Urine Ketones 15 Urine Blood Negative Urine Nitrite Negative Ur Leukocyte Esterase Trace H Urine RBC 0-2 Urine WBC 0-5 Ur Squamous Epith Cells 3-5 Urine Bacteria None Seen Hyaline Casts 0-2 Urine Test NEGATIVE 03/25/25 06:12 MCV 88.1 MCH 29.9 MCHC 34.0 RDW 12.0 Plt Count 332 MPV 9.9 Immature Gran % (Auto) Neut % (Auto) Lymph % (Auto) [place] % (Auto) Eos % (Auto) Baso % (Auto) Lymph # (Auto) [place] # (Auto) Eos # (Auto) Baso # (Auto) Abs Immat Gran (auto) Absolute Neuts (auto) Absolute Nucleated RBC 0.000 Nucleated RBC % (auto) 0.0 Anion Gap Estim Creat Clear Calc Estimated GFR Random Glucose Lactic Acid Calcium Total Bilirubin AST ALT Alkaline Phosphatase Total Protein Albumin Urine Color Urine Appearance Urine pH Ur Specific [employer] Urine Protein Urine Glucose (UA) Urine Ketones Urine Blood Urine Nitrite Ur Leukocyte Esterase Urine RBC Urine WBC Ur Squamous Epith Cells Urine Bacteria Hyaline Casts Urine Test Assessment and Plan (1) Colitis: Status: Acute Plan 34y/o F who was in the ED yesterday with similar symptoms-came today for persistent of nausea, vomiting, nonbloody watery diarrhea, and diffuse abdominal cramps, patient was seen on 03/22 for similar symptoms had CT abdomen pelvis which reveals nonspecific colitis. Colitis with intractable nausea vomiting and diarrhea Stool studies, IV fluid, antiemetics IV, IV antibiotics, IV pain medication. Acute hypokalemia d/t diarrhea replace with PO and IV K check Magnesium DVT : SubQ Lovenox Diet: clear and advance as tole Full code Quality Stroke Does the patient have a stroke diagnosis?: No VTE Prior VTE?: No VTE Risk Level:: Medical - moderate - high VTE Device Contraindication: N/A - Device Ordered VTE Drug Contraindication: N/A - Med Ordered
[2025-03-25 07:30] LABS: Anion Gap 10 (12-20); Blood Urea Nitrogen 12 mg/dL (9-16); Carbon Dioxide 25 mmol/L (22-29); Chloride 105 mmol/L (96-108); Creatinine Clr Calc Pharmacy 109.1; Estimated Glomerular Filt Rate > 60; Glucose Random 109 mg/dL (60-115); Potassium 2.8 mmol/L (3.3-5.1); Sodium 137 mmol/L (135-145)
[2025-03-25 07:39] LABS: Calcium 8.9 mg/dL (8.4-10.2)
[2025-03-25 07:40] VITALS: BP 133/81; PULSE 66; RESP 17; TEMP 36.4; O2SAT 97
[2025-03-25] MEDS: Potassium Chloride ER 20 MEQ TAB.ER.PRT 40 MEQ PO ×3 (07:59→21:30)
[2025-03-25 08:03] LABS: Magnesium 1.9 mg/dL (1.6-2.6)
--- NOTE | 2025-03-25 09:57 | MHC.CM.PN ---
pt lives with her children she is indepedent pt has a ride home dc pln home no services
[2025-03-25] MEDS: Potassium Chloride/H20 10 MEQ/100 ML PIGGYBACK 100 MEQ IV ×2 (14:29→15:26)
[2025-03-25 15:20] VITALS: BP 115/63; PULSE 68; RESP 17; TEMP 36.9; O2SAT 97
[2025-03-25] MEDS: Prochlorperazine Edisylate 10 MG/2 ML VIAL 5 MG IVPUSH (19:00)
[2025-03-25] MEDS: 0.9 % Sodium Chloride Flush 3 ML SYRINGE IVFLUSH (19:01)
[2025-03-25 19:09] VITALS: BP 132/81; PULSE 68; RESP 16; TEMP 37.2; O2SAT 96
[2025-03-25 19:24] LABS: Anion Gap 12 (12-20); Carbon Dioxide 25 mmol/L (22-29); Chloride 107 mmol/L (96-108); Potassium 3.5 mmol/L (3.3-5.1); Sodium 140 mmol/L (135-145)
[2025-03-25 21:57] LABS: Amphetamine Screen Urine Not Detected (Not Detect); Barbiturates, Urine Not Detected (Not Detect); Benzodiazepines Screen Urine Not Detected (Not Detect); Buprenorphine Scr Not Detected (Not Detect); Cannabinoid Screen Urine POSITIVE (Not Detect); Cocaine Screen Urine Not Detected (Not Detect); Fentanyl, urine Not Detected (Not Detect); Methadone Screen, Urine Not Detected (Not Detect); Opiate Screen Urine POSITIVE (Not Detect); Oxycodone Screen Urine Not Detected (Not Detect); Phencyclidine Screen Urine Not Detected (Not Detect)
--- NOTE | 2025-03-26 | ECG_ITS ---
Test Reason : CK RHYTHM Blood Pressure : */* mmHG Vent. Rate : 71 BPM Atrial Rate : 71 BPM P-R Int : 136 ms QRS Dur : 80 ms QT Int : 386 ms P-R-T Axes : 68 47 35 degrees QTcB Int : 419 ms Normal sinus rhythm Normal ECG No previous ECGs available Referred By: Frederick Dueñas Electronically Signed By: Gabriel Mohamud
[2025-03-26] MEDS: Lactated Ringers 1,000 ML 100 ML IVCONT ×2 (00:15→11:56)
[2025-03-26 02:36] VITALS: BP 117/73; PULSE 70; RESP 16; TEMP 36.5; O2SAT 97
[2025-03-26] MEDS: Prochlorperazine Edisylate 10 MG/2 ML VIAL 5 MG IVPUSH (05:05)
[2025-03-26] MEDS: Piperacillin Sodium/Tazobactam 3.375 GM in 0.9 % Sodium Chloride 50 ML IV ×4 (05:05→23:38)
[2025-03-26] MEDS: Morphine Sulfate 2 MG/ML CARTRIDGE IVPUSH ×2 (07:51→21:32)
[2025-03-26 07:53] VITALS: BP 116/55; PULSE 83; RESP 17; TEMP 36.8; O2SAT 95
--- NOTE | 2025-03-26 09:01 | HO.PM.IMPN ---
Subjective Subjective Date of Service: 03/26/25 Interval History: f/u on abd pain d/t colitis She has persistent nausea and vomitting and positive canabis Review of Systems As above. Physical Exam Vital Signs: Vital Signs: Last Vital Signs Temp 98.3 F 03/26/25 07:53 Pulse 83 03/26/25 07:53 Resp 17 03/26/25 07:53 BP 116/55 L 03/26/25 07:53 Pulse Ox 95 03/26/25 07:53 O2 Del Method Room Air 03/26/25 07:53 BMI result Body Mass Index 23.8 Const: Other: General: AO X 3, no acute distress Resp: CTA bilateral CVS: S1,S2,RRR GI: +BS, NT, no distention Skin: No rash Neuro: motor grossly intact Psych: appropriate affect Objective Data Active Medications Acetaminophen (Acetaminophen 325 Mg Tablet) 650 mg PO Q6H PRN PRN Reason: Pain, Mild 1-3,fever,headache Calcium Carbonate (Calcium Carbonate 750 Mg Tab.Chew) 750 mg PO Q4H PRN PRN Reason: Heartburn Enoxaparin Sodium (Enoxaparin Sodium 40 Mg/0.4 Ml Syringe) 40 mg SUBCUT Q24H [facility] Last Admin: 03/25/25 18:38 Dose: Not Given Documented By: MARCELINA Non-Admin Reason: Patient Refused Piperacillin Sod/Tazobactam (Sod 3.375 gm/ Sodium Chloride) 50 mls @ 100 mls/hr IV Q6H [facility] Last Infusion: 03/26/25 05:35 Dose: Infused Documented By: HELDER Lactated Ringer's (Lr) 1,000 mls @ 100 mls/hr IVCONT .Q10H [facility] Last Admin: 03/26/25 00:15 Dose: 100 mls/hr Documented By: HELDER Magnesium Hydroxide (Milk Of Magnesia 30 Ml Oral.Susp) 30 ml PO DAILY PRN PRN Reason: Constipation Melatonin (Melatonin 3 Mg Tablet) 6 mg PO BEDTIME PRN PRN Reason: Insomnia Morphine Sulfate (Morphine Sulfate 2 Mg/Ml Cartridge) 2 mg IVPUSH Q4H PRN; Protocol PRN Reason: Pain, Severe (Pain Scale 7-10) Last Admin: 03/26/25 07:51 Dose: 2 mg Documented By: HO.STOKESD Ondansetron HCl (Ondansetron Hcl 4 Mg/2 Ml Vial) 4 mg IVPUSH Q6H PRN PRN Reason: Nausea and Vomiting Last Admin: 03/25/25 17:50 Dose: 4 mg Documented By: MARCELINA Prochlorperazine Edisylate (Prochlorperazine Edisylate 10 Mg/2 Ml Vial) 5 mg IVPUSH Q6H PRN PRN Reason: Nausea and Vomiting Last Admin: 03/26/25 05:05 Dose: 5 mg Documented By: HELDER Comments: downtime Sodium Chloride (0.9 % Sodium Chloride Flush 3 Ml Syringe) 3 ml IVFLUSH QSHIFT [facility] Last Admin: 03/26/25 06:34 Dose: Not Given Documented By: MARCELINA Non-Admin Reason: IV Running Labs 03/25/25 06:12 03/25/25 19:03 Labs: Laboratory Results - last 24 hr 03/25/25 03/25/25 19:03 21:34 Anion Gap 12 Urine Opiates Screen POSITIVE H Ur Buprenorphine Scrn Not Detected Ur Oxycodone Screen Not Detected Urine Methadone Screen Not Detected Urine Fentanyl Screen Not Detected Ur Barbiturates Screen Not Detected Ur Phencyclidine Scrn Not Detected Ur Amphetamines Screen Not Detected U Benzodiazepines Scrn Not Detected Urine Cocaine Screen Not Detected U Marijuana (THC) Screen POSITIVE H Microbiology Microbiology Results: Microbiology 03/24/25 12:00 Blood Culture - Preliminary Blood - Venous No growth after 24 hours. 03/24/25 12:00 Blood Culture - Preliminary Blood - Venous No growth after 24 hours. Assessment and Plan (1) Colitis: Status: Acute Plan 34y/o F who was in the ED yesterday with similar symptoms-came today for persistent of nausea, vomiting, nonbloody watery diarrhea, and diffuse abdominal cramps, patient was seen on 03/22 for similar symptoms had CT abdomen pelvis which reveals nonspecific colitis. Colitis with intractable nausea vomiting and diarrhea, likely cyclical vomiting from canabis Stool studies, IV fluid, antiemetics IV, IV antibiotics, IV pain medication, GI consult Acute hypokalemia d/t diarrhea, resolved with IV and PO replacement DVT : SubQ Lovenox Diet: clear and advance as tole Full code Quality Stroke Does the patient have a stroke diagnosis?: No VTE Prior VTE?: No VTE Risk Level:: Medical - moderate - high VTE Device Contraindication: N/A - Device Ordered VTE Drug Contraindication: N/A - Med Ordered
[2025-03-26] MEDS: ondansetron HCL 4 MG/2 ML VIAL IVPUSH (09:10)
[2025-03-26 10:58] LABS: CDiff Gene PCR NEGATIVE (Negative)
--- NOTE | 2025-03-26 14:33 | MHC.CM.PN ---
per rounds pt is not ready for dc having vomiting and diahera
[2025-03-26 16:02] VITALS: BP 124/63; PULSE 96; RESP 18; TEMP 37.6; O2SAT 96
[2025-03-26] MEDS: 0.9 % Sodium Chloride Flush 3 ML SYRINGE IVFLUSH ×2 (16:06→21:34)
[2025-03-26] MEDS: Acetaminophen 325 MG TABLET 650 MG PO (16:06)
[2025-03-26 19:53] VITALS: BP 117/58; PULSE 80; RESP 18; TEMP 37.2; O2SAT 97
[2025-03-27] MEDS: Melatonin 3 MG TABLET 6 MG PO (00:13)
[2025-03-27 03:13] VITALS: BP 109/59; PULSE 93; RESP 16; TEMP 36.2; O2SAT 97
[2025-03-27] MEDS: Piperacillin Sodium/Tazobactam 3.375 GM in 0.9 % Sodium Chloride 50 ML IV ×3 (05:40→17:25)
[2025-03-27 07:14] VITALS: BP 112/58; PULSE 71; RESP 16; TEMP 36.5; O2SAT 97
[2025-03-27] MEDS: 0.9 % Sodium Chloride Flush 3 ML SYRINGE IVFLUSH ×3 (07:50→23:08)
[2025-03-27 09:10] LABS: Adenovirus F 40/41 Not Detected (Not Detect.); Astrovirus Not Detected (Not Detect.); Campylobacter Not Detected (Not Detect.); Cryptosporidium Not Detected (Not Detect.); Cyclospora cayetanensis Not Detected (Not Detect.); E. coli EAEC Not Detected (Not Detect.); E. coli EPEC Not Detected (Not Detect.); E. coli ETEC Not Detected (Not Detect.); E. coli STEC Not Detected (Not Detect.); Entamoeba histolytica Not Detected (Not Detect.); Giardia lamblia Not Detected (Not Detect.); Norovirus GI/GII Not Detected (Not Detect.); Plesiomonas shigelloides Not Detected (Not Detect.); Rotavirus A Not Detected (Not Detect.); Salmonella Not Detected (Not Detect.); Sapovirus Not Detected (Not Detect.); Shigella sp./EIEC Not Detected (Not Detect.); Vibrio Not Detected (Not Detect.); Vibrio Cholerae Not Detected (Not Detect.); Yersinia enterocolitica Not Detected (Not Detect.)
--- NOTE | 2025-03-27 11:09 | PM.DS ---
DS: Providers Provider Date of Service: 03/28/25 Date of admission: 03/24/25 13:01 Date of discharge: 03/28/25 Primary care physician: Nonstaff Physician DS: Diagnosis Discharge Diagnosis (1) Colitis: Status: Acute DS: Summary Hospital Course Hospital Course: admission hpi Chief Complaint: abd pain 34y/o F who was in the ED yesterday with similar symptoms-came today for persistent of nausea, vomiting, nonbloody watery diarrhea, and diffuse abdominal cramps, patient was seen on 03/22 for similar symptoms had CT abdomen pelvis which reveals nonspecific colitis. She was sent home yesterday with p.o. Augmentin but she could not tolerate it due to persistent nausea vomiting and also has significant abdominal pain so came to the hospital for further management. Last BM was this morning mostly watery Denies any new complaint of chest pain or shortness of breath or fever or chills Denies any cough or any weakness or numbness. Lab imaging reviewed: WBC count is 13.4 Potassium 2.9 Mild elevated AST and ALT. CT abdomen as above. Patient received IV Zosyn, Zofran pain medication and potassium in ED and requested admission for colitis and unable to take p.o. hospital course: Patient presented with abdominal pain, nausea, she had previously been evaluated in the ED and found to have colitis and was discharged with Augmentin, unfortunately she continues to have symptoms of pain, nausea and vomitting and returned to the ED and was admitted and administer IV Zosyn, IV antiemetics because of persistent nause and vomitting. Her condition ultimately impoved, and her diet was advanced and presently tolerating regular diet. She probably had a component of cycliccal vomiting from canabis use and warned of recurrent episode with continous use. As for suspected colitis, she will complete a 7 day of course of antibiotics with Augmentin previously prescribed. Gi panel was negative Time Attestation Discharge Coordination Time (in mins): 45 Quality: Safe Use of Opioids Does Pt have an Active Cancer Diagnosis on the Problem List?: No Quality: Stroke Does the patient have a stroke diagnosis?: No Physical Exam Vital Signs: Vital Signs: Selected Entries 03/28/25 07:47 Temperature 98.3 F Pulse Rate 90 Respiratory Rate 16 Blood Pressure 123/67 Pulse Oximetry 96 Oxygen Delivery Me thod Room Air DS: Data Data Completed and Pending Labs on day of discharge: Laboratory Results - last 24 hr 03/27/25 06:31 Stl C. cayetanensis PCR Not Detected Stool Rotavirus A PCR Not Detected Stl Adenov F 40/41 PCR Not Detected Stool Astrovirus (PCR) Not Detected Stool Campylobacter PCR Not Detected Stool Cryptosporidium PCR Not Detected Stl Sh Tox Pr E STEC PCR Not Detected Stool E coli O157 PCR Not applicable Stl Enterotoxigenic E PCR Not Detected Stool EPEC (PCR) Not Detected Stool EAEC (PCR) Not Detected Stl E. histolytica PCR Not Detected Stool Giardia Lamblia PCR Not Detected Stl P. shigelloides PCR Not Detected Stool Salmonella PCR Not Detected Stool Sapovirus (PCR) Not Detected Stl Shigella/EIEC PCR Not Detected St Y.enterocolitica PCR Not Detected Stool Vibrio (PCR) Not Detected Stl Vibrio cholerae PCR Not Detected Stl Norovirus GI/GII PCR Not Detected Preliminary micro results at discharge 03/24/25 12:00 Blood Culture - Preliminary Blood - Venous No growth after 48 hours. 03/24/25 12:00 Blood Culture - Preliminary Blood - Venous No growth after 48 hours. Discharge Plan Discharge Anticipated Discharge Date/Time: 03/27/25 11:10 Patient Disposition: Home, Self-Care Discharge Diagnosis: colitis, cyclical vomiting Referrals: Physician,Nonstaff [Primary Care Provider, Medical] - 1 Week Discharge Medications: Continued amoxicillin-pot clavulanate 875-125 mg tablet 1 tab PO Q12H Qty: 14 0RF potassium chloride 20 mEq packet 40 meq PO DAILY Qty: 10 0RF Nauzene Upset Stomach-Nausea 230 mg Tablet,Chewable 690 mg PO Q15M PRN (Reason: Nausea And Vomiting) Discharge Orders: Discharge Order (Routine); Ordered 03/27/25 Ordered By: Frederick Dueñas Diet: Advance to usual diet Activity on Discharge: As tolerated Stand Alone Forms: Patient Portal Discharge page Print Language: Kiswahili Care Plan Goals: recovery from colitis and intractable nausea and vomitting Health Concerns: colitis intractable nausea and vomitting Plan of Treatment: take Augmentin as previously recommended for 5 more day Assessment: see above
--- NOTE | 2025-03-27 12:06 | MHC.CM.PN ---
PT TO DC HOME TODAY WITH NO SERVICES VIA PRIVATE TRANSPORT
[2025-03-27] MEDS: Prochlorperazine Edisylate 10 MG/2 ML VIAL 5 MG IVPUSH (13:35)
[2025-03-27] MEDS: Morphine Sulfate 2 MG/ML CARTRIDGE IVPUSH ×3 (13:35→23:15)
[2025-03-27] MEDS: ondansetron HCL 4 MG/2 ML VIAL IVPUSH ×2 (14:20→20:14)
[2025-03-27] MEDS: Acetaminophen 325 MG TABLET 650 MG PO (14:26)
[2025-03-27 15:09] VITALS: BP 147/76; PULSE 75; RESP 14; TEMP 36.4; O2SAT 95
--- NOTE | 2025-03-27 17:54 | P.PNIM_ITS ---
Subjective Subjective Date of Service: 03/27/25 Interval History: Discharge on hold d/t persistent n/v since on regular diet Physical Exam 2 Vital Signs: Vital Signs: Last Vital Signs Temp 97.5 F 03/27/25 15:09 Pulse 75 03/27/25 15:09 Resp 14 03/27/25 15:09 BP 147/76 H 03/27/25 15:09 Pulse Ox 95 03/27/25 15:09 O2 Del Method Room Air 03/27/25 15:09 BMI result Body Mass Index 23.8 Const: Other: General: AO X 3, no acute distress Resp: CTA bilateral CVS: S1,S2,RRR GI: +BS, NT, no distention Skin: No rash Neuro: motor grossly intact Psych: appropriate affect Objective Data Active Medications Acetaminophen (Acetaminophen 325 Mg Tablet) 650 mg PO Q6H PRN PRN Reason: Pain, Mild 1-3,fever,headache Last Admin: 03/27/25 14:26 Dose: 650 mg Documented By: MARCELINA Calcium Carbonate (Calcium Carbonate 750 Mg Tab.Chew) 750 mg PO Q4H PRN PRN Reason: Heartburn Enoxaparin Sodium (Enoxaparin Sodium 40 Mg/0.4 Ml Syringe) 40 mg SUBCUT Q24H [facility] Last Admin: 03/26/25 18:29 Dose: Not Given Documented By: MARCELINA Non-Admin Reason: Patient Refused Piperacillin Sod/Tazobactam (Sod 3.375 gm/ Sodium Chloride) 50 mls @ 100 mls/hr IV Q6H [facility] Last Admin: 03/27/25 17:25 Dose: 100 mls/hr Documented By: KATLYN Magnesium Hydroxide (Milk Of Magnesia 30 Ml Oral.Susp) 30 ml PO DAILY PRN PRN Reason: Constipation Melatonin (Melatonin 3 Mg Tablet) 6 mg PO BEDTIME PRN PRN Reason: Insomnia Last Admin: 03/27/25 00:13 Dose: 6 mg Documented By: LARRY Morphine Sulfate (Morphine Sulfate 2 Mg/Ml Cartridge) 2 mg IVPUSH Q4H PRN; Protocol PRN Reason: Pain, Severe (Pain Scale 7-10) Last Admin: 03/27/25 13:35 Dose: 2 mg Documented By: MARCELINA Ondansetron HCl (Ondansetron Hcl 4 Mg/2 Ml Vial) 4 mg IVPUSH Q6H PRN PRN Reason: Nausea and Vomiting Last Admin: 03/27/25 14:20 Dose: 4 mg Documented By: MARCELINA Prochlorperazine Edisylate (Prochlorperazine Edisylate 10 Mg/2 Ml Vial) 5 mg IVPUSH Q6H PRN PRN Reason: Nausea and Vomiting Last Admin: 03/27/25 13:35 Dose: 5 mg Documented By: MARCELINA Sodium Chloride (0.9 % Sodium Chloride Flush 3 Ml Syringe) [facility] Last Admin: 03/27/25 14:22 Dose: 3 ml Documented By: MARCELINA Labs 03/25/25 06:12 03/25/25 19:03 Labs: Laboratory Results - last 24 hr 03/27/25 06:31 Stl C. cayetanensis PCR Not Detected Stool Rotavirus A PCR Not Detected Stl Adenov F 40/41 PCR Not Detected Stool Astrovirus (PCR) Not Detected Stool Campylobacter PCR Not Detected Stool Cryptosporidium PCR Not Detected Stl Sh Tox Pr E STEC PCR Not Detected Stool E coli O157 PCR Not applicable Stl Enterotoxigenic E PCR Not Detected Stool EPEC (PCR) Not Detected Stool EAEC (PCR) Not Detected Stl E. histolytica PCR Not Detected Stool Giardia Lamblia PCR Not Detected Stl P. shigelloides PCR Not Detected Stool Salmonella PCR Not Detected Stool Sapovirus (PCR) Not Detected Stl Shigella/EIEC PCR Not Detected St Y.enterocolitica PCR Not Detected Stool Vibrio (PCR) Not Detected Stl Vibrio cholerae PCR Not Detected Stl Norovirus GI/GII PCR Not Detected Microbiology Microbiology Results: Microbiology 03/24/25 12:00 Blood Culture - Preliminary Blood - Venous No growth after 48 hours. 03/24/25 12:00 Blood Culture - Preliminary Blood - Venous No growth after 48 hours. Assessment and Plan (1) Colitis: Status: Acute Plan 34y/o F who was in the ED yesterday with similar symptoms-came today for persistent of nausea, vomiting, nonbloody watery diarrhea, and diffuse abdominal cramps, patient was seen on 03/22 for similar symptoms had CT abdomen pelvis which reveals nonspecific colitis. 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 Check labs DVT : SubQ Lovenox Diet: clear and advance as tole Full code Quality Stroke Does the patient have a stroke diagnosis?: No VTE Prior VTE?: No VTE Risk Level:: Medical - moderate - high VTE Device Contraindication: N/A - Device Ordered VTE Drug Contraindication: N/A - Med Ordered
[2025-03-27] MEDS: Lactated Ringers 1,000 ML 125 ML IVCONT (18:26)
[2025-03-27 19:14] VITALS: BP 128/67; PULSE 70; RESP 12; TEMP 36.8; O2SAT 94
[2025-03-27 19:42] LABS: Hematocrit 37.1 % (37.0-47.0); Hemoglobin 13.2 g/dl (12.0-16.0); Mean Corpuscular HGB Conc 35.6 g/dl (31.0-35.0); Mean Corpuscular Hemoglobin 30.3 pg (27.0-33.0); Mean Corpuscular Volume 85.1 fL (80.0-98.0); Mean Platelet Volume 9.8 fL (9.4-12.3); Platelet Count 352 X10*3/uL (160-400); Red Blood Count 4.36 X10*6/uL (4.20-5.50); White Blood Count 14.1 X10*3/uL (4.8-10.8)
[2025-03-27 19:53] LABS: Anion Gap 15 (12-20); Blood Urea Nitrogen 9 mg/dL (9-16); Calcium 9.1 mg/dL (8.4-10.2); Carbon Dioxide 23 mmol/L (22-29); Chloride 103 mmol/L (96-108); Creatinine Clr Calc Pharmacy 113.6; Estimated Glomerular Filt Rate > 60; Glucose Random 108 mg/dL (60-115); Potassium 3.5 mmol/L (3.3-5.1); Sodium 137 mmol/L (135-145)
[2025-03-27] MEDS: cefTRIAXone sodium 1 GM VIAL IVPUSH (23:05)
[2025-03-27 23:45] VITALS: RESP 18
[2025-03-28] MEDS: Lactated Ringers 1,000 ML 125 ML IVCONT (02:09)
[2025-03-28] MEDS: ondansetron HCL 4 MG/2 ML VIAL IVPUSH ×2 (02:26→08:29)
[2025-03-28 03:18] VITALS: BP 120/67; PULSE 68; RESP 16; TEMP 36; O2SAT 97
[2025-03-28] MEDS: Prochlorperazine Edisylate 10 MG/2 ML VIAL 5 MG IVPUSH (06:10)
[2025-03-28 06:24] LABS: Hematocrit 36.4 % (37.0-47.0); Hemoglobin 12.7 g/dl (12.0-16.0); Mean Corpuscular HGB Conc 34.9 g/dl (31.0-35.0); Mean Corpuscular Hemoglobin 30.2 pg (27.0-33.0); Mean Corpuscular Volume 86.5 fL (80.0-98.0); Platelet Count 337 X10*3/uL (160-400); Red Blood Count 4.21 X10*6/uL (4.20-5.50); Red Cell Distribution Width 12.1 % (11.0-16.0); White Blood Count 12.1 X10*3/uL (4.8-10.8)
[2025-03-28 06:30] LABS: Anion Gap 10 (12-20); Blood Urea Nitrogen 8 mg/dL (9-16); Carbon Dioxide 26 mmol/L (22-29); Chloride 104 mmol/L (96-108); Creatinine Clr Calc Pharmacy 113.6; Estimated Glomerular Filt Rate > 60; Glucose Random 95 mg/dL (60-115); Potassium 3.7 mmol/L (3.3-5.1); Sodium 136 mmol/L (135-145)
[2025-03-28 07:47] VITALS: BP 123/67; PULSE 90; RESP 16; TEMP 36.8; O2SAT 96
[2025-03-28] MEDS: Morphine Sulfate 2 MG/ML CARTRIDGE IVPUSH (08:38)
--- NOTE | 2025-03-28 08:58 | MHC.CM.PN ---
pt dcd home self care
== END 2025-03-28 11:48 | disposition home or self-care (01) | DRG 392 ==
LOC: HO.ED 11:25 → HO.EDOVER 13:10 → HO.S3 19:28
PROVIDERS: Admitting Provider Internal Medicine; Emergency Provider Emergency Medicine; Visit Provider Internal Medicine
DX: K52.9 Noninfective gastroenteritis and colitis, unspecified (principal); E87.6 Hypokalemia; F10.90 Alcohol use, unspecified, uncomplicated; R11.2 Nausea with vomiting, unspecified; Z79.899 Other long term (current) drug therapy
CPT/HCPCS: 36415; 80048; 80051; 80053; 80307; 81001; 81025; 83605; 83735; 85025; 85027; 87040; 87493; 87507; 93005; 99285; J0696; J0737; J1650; J1885; J2270; J2405; J2543; J2765; J3480; J7120

== ENCOUNTER 2025-03-24 13:01 | Outpatient (BNV) | payer SELFPAY | END 2025-03-26 10:01 | PROVIDERS: Admitting Provider Internal Medicine; Emergency Provider Emergency Medicine; Visit Provider Internal Medicine Cardiovascular Disease | DX: I49.9 Cardiac arrhythmia, unspecified (principal) | CPT/HCPCS: 93010 ==

== ENCOUNTER → 2025-03-24 13:01 | Outpatient (BNV) | payer SELFPAY | PROVIDERS: Admitting Provider Internal Medicine; Emergency Provider Emergency Medicine; Visit Provider Internal Medicine | DX: K52.9 Noninfective gastroenteritis and colitis, unspecified (principal) | CPT/HCPCS: 99222; 99232; 99239 ==